=== PATIENT | male | born 1945 | race African-American/Black ===

== ENCOUNTER 2016-12-23 11:45 | Day surgery (SDC) | payer OTHER ==
[~2016-12-23] VITALS: Ht 182.9 cm; Wt 69.9 kg
[2016-12-23 12:19] VITALS: Ht 182.9 cm; Wt 69.9 kg
[2016-12-23] MEDS ORDERED: NIFE60TA7 PO (12:37)
[2016-12-23] MEDS ORDERED: LEVO50TA74 PO (12:37)
[2016-12-23 12:38] VITALS: BP 146/80; PULSE 49; RESP 14
[2016-12-23 13:53] VITALS: BP 146/83; PULSE 56; RESP 14
--- NOTE | 2016-12-23 14:04 | GILP ---
DATE OF PROCEDURE: 12/23/2016 PROCEDURE PERFORMED: Esophagogastroduodenoscopy with biopsy, colonoscopy with a polypectomy. INDICATIONS FOR PROCEDURE: A 71-year-old male undergoing this procedure for anemia and colon cancer screening. He also has epigastric pain and heartburn. The purpose is to evaluate both the upper GI tract, lower GI tract and find out the cause of GI blood loss. The risks of the procedure, related complications, anesthetic risks and alternatives discussed. Informed consent was obtained. DESCRIPTION OF PROCEDURE: The patient was brought to the GI lab, sedated by the anesthesiologist. After optimal sedation, scope was passed with much ease into the esophagus, which was grossly within normal limits. The GE junction was around 40-43 cm. Stomach mucosa revealed gastritis, mostly in the antrum. Duodenum, 1st and 2nd part appeared normal. Biopsy taken from the antrum to rule out H pylori infection. Retroversion done. No growth was seen. Scope was straightened out and removed with good patient tolerance. IMPRESSION: 1. Normal esophagus. 2. Normal Z-line at 43 cm. 3. Gastritis. 4. Normal duodenum. PLAN: Review histopathology. COLONOSCOPY: He was turned around. Scope was passed with much ease into the rectum, advanced to sigmoid, descending, transverse colon all the way into cecum. Appendiceal orifice, IC valve were identified. There was a polyp in the ascending colon, again 7-8 mm in diameter, successfully removed by cold snare technique. There was another polyp again in the transverse colon, proximal, successfully removed by cold snare technique. This was also 7-8 mm in diameter. The rest of the colon appeared normal. Small hemorrhoids identified. IMPRESSION: 1. Normal findings all the way to cecum, except for 2 polyps removed by cold snare technique as described. 2. Clarity and cleanliness was good. 3. Small hemorrhoids. PLAN: Stay on high-fiber diet. Based on the histopathology, we will decide whether patient needs colonoscopy in the next by 5 years or 7 years. Dictated By: Delmar Douglas MD /[email or web address] /Document#: [id number] ; Dr. Dora Tapia
--- NOTE | 2016-12-23 14:07 | OPPN ---
Date/Time of Note Date/Time of Note DATE: 12/23/16 TIME: 14:03 Operative Report Free Text/Dictation anemia,colon cancer screening Preoperative Diagnosis anemia,screening colon cancer Postoperative Diagnosis same Operation/Procedure Performed 1.gastritis 2.two polyps removed by cold snare.each one was 8 to 9 mm. 3.otherwise negative colon Provider: JORGE TELLEZ MD Anesthesia Type: MAC Estimated blood loss: none Transfusion Required: no Specimen: none Grafts/Implants: none Complications: no JORGE TELLEZ MD Dec 23, 2016 14:06
== END 2016-12-23 14:50 | disposition home or self-care (01) ==
LOC: GIL 11:45
PROVIDERS: ATTEND Internal Medicine Gastroenterology
DX: Z12.11 Encounter for screening for malignant neoplasm of colon (principal); K29.50 Unspecified chronic gastritis without bleeding; D12.3 Benign neoplasm of transverse colon; E78.5 Hyperlipidemia, unspecified; I10 Essential (primary) hypertension; E03.9 Hypothyroidism, unspecified
CPT/HCPCS: 43239; 45385; 88305; 88312; Z7610